=== PATIENT | female | born 1950 | race Caucasian/White ===

== ENCOUNTER 2020-01-26 17:25 | Emergency (ER) | payer MEDICARE, OTHER ==
[~2020-01-26] VITALS: Ht 152.4 cm; Wt 88.9 kg
[2020-01-26] MEDS ORDERED: SODIUM CHLORIDE 0.9% 1000ML 1,000 ML IV STA (18:17)
[2020-01-26] MEDS ORDERED: CEFTRIAXONE SOD 1 GM/NS 50 ML 50 ML IV ONE (18:30)
--- NOTE | 2020-01-26 18:57 | Diagnostic Imaging Report ---
EXAMINATION: CHEST SINGLE (PORTABLE) COMPARISON: None INDICATION: ^Y ^SOB shortness of breath, weakness DISCUSSION: Frontal view of the chest obtained at 1839 hours. HEART AND MEDIASTINUM: The heart is normal in size LINES: Dual-lead pacemaker wires terminate in the right atrium and right ventricle LUNGS/PLEURA: The lungs are well inflated and clear. No pneumonia or pulmonary edema. Mild eventration of the right diaphragm. No pleural effusion or pneumothorax. BONES AND SOFT TISSUES: No focal osseous lesion. The soft tissues are normal. IMPRESSION: No acute cardiopulmonary disease. Signed by: Dr. Raul Zapata MD on 01/26/2020 6:54 PM
[2020-01-26 19:12] LABS: BASOPHILS # (AUTO) 0.1 (0.0-0.1); BASOPHILS % 1.1 % (0.0-1.0); EOSINOPHILS # (AUTO) 0.3 (0.0-0.4); EOSINOPHILS % 3.9 % (0.0-6.0); HEMATOCRIT 43.6 % (34.2-44.1); HEMOGLOBIN 14.3 g/dL (12.0-16.0); LYMPHOCYTES # (AUTO) 2.4 (1.0-3.2); LYMPHOCYTES % 33.4 % (18.0-39.1); MEAN CORPUSCULAR HEMOGLOBIN 29.1 pg (28-32); MEAN CORPUSCULAR HGB CONC 32.8 g/dL (31-35); MEAN CORPUSCULAR VOLUME 88.6 fL (81-99); MONOCYTES # (AUTO) 0.8 (0.2-0.8); MONOCYTES % 11.4 % (4.4-11.3); NEUTROPHILS # (AUTO) 3.6 (2.1-6.9); NEUTROPHILS % 49.2 % (38.7-80.0); PLATELET COUNT 221 x10e3/uL (140-360); RED BLOOD COUNT 4.92 x10e6/uL (3.6-5.1); RED CELL DISTRIBUTION WIDTH 12.1 % (11.7-14.4)
[2020-01-26 19:29] LABS: PARTIAL THROMBOPLASTIN TIME 29.7 seconds (23.8-35.5)
[2020-01-26 19:30] LABS: BILIRUBIN,URINE NEGATIVE (NEGATIVE); CLARITY,URINE CLEAR (CLEAR); COLOR,URINE YELLOW (YELLOW); KETONES,URINE NEGATIVE (NEGATIVE); LEUKOCYTE ESTERASE ,URINE NEGATIVE (NEGATIVE); NITRITE,URINE NEGATIVE (NEGATIVE); PROTEIN,URINE DIPSTICK NEGATIVE (NEGATIVE); URINE UROBILINOGEN 0.2 mg/dL (0.2 - 1)
[2020-01-26 19:35] LABS: INR 0.88; PROTHROMBIN TIME 12.4 seconds (11.9-14.5)
--- NOTE | 2020-01-26 19:38 | Emergency Department Note ---
History of Present Illnes History of Present Illness Chief Complaint: COVID PUI History of Present Illness This is a 69 year old female WITH COMPLAINTS OF SHORTNESS OF BREATH AND DIZZINESS X 2 DAYS; REPORTS FEELING VERY WEAK AND TIRED. PATIENT STATES TODAY SHE WAS OUT FEEDING THE ANIMALS AND SLIPPED AND FELL AND HIT BACK OF HER HEAD, DENIES LOC. DENIES FEVER, DENIES COUGH, . Historian: Patient Arrival Mode: Car Onset (how long ago): day(s) (2) Location: ALL OVER Quality: GENERALIZED WEAKNESS AND FATIGUE FOR 2 DAYS Radiation: Reports non-radiation Severity: moderate Onset quality: gradual Duration (how long): hour(s) (2) Timing of current episode: constant Progression: unchanged Chronicity: new Context: Denies recent illness, Denies recent surgery Relieving factors: none Exacerbating factors: none Associated symptoms: Reports denies other symptoms Treatments prior to arrival: none Past Medical/Family History Physician Review I have reviewed the patient's past medical and family history. Any updates have been documented here. Past Medical History Recent Fever: No Clinical Suspicion of Infectio: No New/Unexplained Change in Ment: No Past Medical History: Hypertension, Asthma, Anxiety, Depression, GERD Past Surgical History: Cholecysctectomy, Appendectomy, Pacer/AICD, Other Surgery: PACEMAKER LOOP RECORDER KATIE Social History Smoking Cessation: Current some day smoker Counseling Performed: Yes Alcohol Use: None Any Illegal Drug Use: No TB Exposure/Symptoms: No Physically hurt or threatened: No Family History Family history of heart diseas: No Other Last Tetanus: UNKNOWN Any Pre-Existing Lines (PICC,: No Is patient up to date on immun: Yes Last Flu: utd Last Pneumovax: utd Review of Systems Review of Systems Constitutional: Reports as per HPI EENTM: Reports no symptoms Cardiovascular: Reports no symptoms Respiratory: Reports as per HPI Gastrointestinal: Reports no symptoms Genitourinary: Reports no symptoms Musculoskeletal: Reports as per HPI Integumentary: Reports no symptoms Neurological: Reports no symptoms Psychological: Reports no symptoms Endocrine: Reports no symptoms Hematological/Lymphatic: Reports no symptoms Physical Exam Related Data Allergies: Coded Allergies: atropine (Verified Allergy, Severe, DIZZINESS AND WEAKNESS, 01/26/20) diphenoxylate (Verified Allergy, Severe, DIZZINESS AND WEAKNESS, 01/26/20) Triage Vital Signs Vital Signs Date Time Temp Pulse Resp B/P (MAP) Pulse Ox O2 Delivery O2 Flow Rate FiO2 01/26/20 17:52 97.5 71 18 168/84 95 Vital signs reviewed: Yes Physical Exam CONSTITUTIONAL Constitutional: Present well-developed, Present well-nourished HENT HENT: Present normocephalic, Present oropharynx clear/moist, Present nose normal, Present other (SMALL CONTUSION RO LEFT POSTERIOR OCCIPITAL AREA) HENT L/R: Present left ext ear normal, Present right ext ear normal EYES Eyes: Reports PERRL, Reports conjunctivae normal NECK Neck: Present ROM normal PULMONARY Pulmonary: Present effort normal, Present breath sounds normal CARDIOVASCULAR Cardiovascular: Present regular rhythm, Present heart sounds normal, Present capillary refill normal, Present normal rate GASTROINTESTINAL Abdominal: Present soft, Present nontender, Present bowel sounds normal GENITOURINARY Genitourinary: Present exam deferred SKIN Skin: Present warm, Present dry MUSCULOSKELETAL Musculoskeletal: Present ROM normal NEUROLOGICAL Neurological: Present alert, Present oriented x 3, Present no gross motor or sensory deficits PSYCHOLOGICAL Psychological: Present mood/affect normal, Present judgement normal Results Laboratory Result Diagram: 01/26/20 1820 Laboratory Laboratory Tests Test 01/26/20 18:20 White Blood Count 7.25 x10e3/uL (4.8-10.8) Red Blood Count 4.92 x10e6/uL (3.6-5.1) Hemoglobin 14.3 g/dL (12.0-16.0) Hematocrit 43.6 % (34.2-44.1) Mean Corpuscular Volume 88.6 fL (81-99) Mean Corpuscular Hemoglobin 29.1 pg (28-32) Mean Corpuscular Hemoglobin Concent 32.8 g/dL (31-35) Red Cell Distribution Width 12.1 % (11.7-14.4) Platelet Count 221 x10e3/uL (140-360) Neutrophils (%) (Auto) 49.2 % (38.7-80.0) Lymphocytes (%) (Auto) 33.4 % (18.0-39.1) Monocytes (%) (Auto) 11.4 % (4.4-11.3) Eosinophils (%) (Auto) 3.9 % (0.0-6.0) Basophils (%) (Auto) 1.1 % (0.0-1.0) Neutrophils # (Auto) 3.6 (2.1-6.9) Lymphocytes # (Auto) 2.4 (1.0-3.2) Monocytes # (Auto) 0.8 (0.2-0.8) Eosinophils # (Auto) 0.3 (0.0-0.4) Basophils # (Auto) 0.1 (0.0-0.1) Absolute Immature Granulocyte (auto 0.07 x10e3/uL (0-0.1) Urine Color Yellow (YELLOW) Urine Clarity Clear (CLEAR) Urine pH 7.5 (5 - 7) Urine Specific [place]app[place] 1.020 (1.010-1.025) Urine Protein Negative (NEGATIVE) Urine Glucose (UA) Negative (NEGATIVE) Urine Ketones Negative (NEGATIVE) Urine Blood Negative (NEGATIVE) Urine Nitrite Negative (NEGATIVE) Urine Bilirubin Negative (NEGATIVE) Urine Urobilinogen 0.2 mg/dL (0.2 - 1) Urine Leukocyte Esterase Negative (NEGATIVE) Lab results reviewed: Yes Imaging Imaging results reviewed: Yes Impressions Procedure: [id number] CT/CT BRAIN WO Exam Date: 01/26/20 Exam Time: 2039 REPORT STATUS: Signed CT BRAIN WO HISTORY: Trauma COMPARISON: None. Technique: Noncontrast axial scans were obtained from skull base to the vertex. Coronal and sagittal reconstructions obtained from the axial data. One or more of the following dose reduction techniques were used: Automated exposure control, adjustment of the mA and/or kV according to patient size, and/or utilization of iterative reconstruction technique. DISCUSSION: Scalp/Skull: Unremarkable. Brain sulci: Mildly prominent. Ventricles: Compensatory dilatation. Extra-axial spaces: No masses or fluid collections. Carotid siphon calcifications are present. Parenchyma: Mild bilateral deep white matter hypodensity is likely chronic microvascular ischemic change. 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 Otherwise, no masses, hemorrhage, or large vascular territory acute infarct. Dural sinuses: No abnormal densities. Sellar/Suprasellar region: Intact. Skull base: Intact. Incidental findings: Bilateral ocular lens replacement. IMPRESSION: 1. No acute intracranial abnormalities. 2. Mild supratentorial chronic microvascular ischemic change. Mild generalized cerebral volume loss. Signed by: Dr. Gregory Chavira M.D. on 01/26/2020 9:22 PM Procedure: [id number] DX/CHEST SINGLE (PORTABLE) Exam Date: Exam Time: REPORT STATUS: Signed EXAMINATION: CHEST SINGLE (PORTABLE) COMPARISON: None INDICATION: ^Y ^SOB shortness of breath, weakness DISCUSSION: Frontal view of the chest obtained at 1839 hours. HEART AND MEDIASTINUM: The heart is normal in size LINES: Dual-lead pacemaker wires terminate in the right atrium and right ventricle LUNGS/PLEURA: The lungs are well inflated and clear. No pneumonia or pulmonary edema. Mild eventration of the right diaphragm. No pleural effusion or pneumothorax. BONES AND SOFT TISSUES: No focal osseous lesion. The soft tissues are normal. IMPRESSION: No acute cardiopulmonary disease. Signed by: Dr. 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 Assessment & Plan Final Impression: (1) UTI (urinary tract infection) (2) Generalized weakness Depart Disposition: HOME, SELF-CARE Last Vital Signs Date Time Temp Pulse Resp B/P (MAP) Pulse Ox O2 Delivery O2 Flow Rate FiO2 01/26/20 17:52 97.5 71 18 168/84 95 Medications in the ED Sodium Chloride 1,000 ml @ 0 mls/hr Q0M STAT IV Last administered on 01/26/20at 18:47; Admin Dose 999 MLS/HR; Start 01/26/20 at 18:17; Stop 01/26/20 at 18:22; Status DC Ceftriaxone Sodium 50 ml @ 100 mls/hr ONCE ONCE IV Last administered on 01/26/20at 18:47; Admin Dose 100 MLS/HR; Start 01/26/20 at 18:30; Stop 01/26/20 at 18:59; Status DC CM CHAVARRIA MD Jan 26, 2020 19:38
[2020-01-26 19:49] LABS: ALANINE AMINOTRANSFERASE 17 IU/L (0-55); ALBUMIN 4.1 g/dL (3.5-5.0); ALBUMIN/GLOBULIN RATIO 1.2 (0.8-2.0); ALKALINE PHOSPHATASE 62 IU/L (40-150); ANION GAP 13.3 mmol/L (8-16); BLOOD UREA NITROGEN 13 mg/dL (7-26); BUN/CREATININE RATIO 15 (6-25); CALCIUM 9.8 mg/dL (8.4-10.2); CARBON DIOXIDE 29 mmol/L (22-29); CHLORIDE 104 mmol/L (98-107); CREATINE KINASE 52 IU/L (29-168); CREATININE, SERUM 0.85 mg/dL (0.57-1.11); EST GLOMERULAR FILTRATION RATE > 60 ML/MIN (60-); GLUCOSE 105 mg/dL (74-118); POTASSIUM 4.3 mmol/L (3.5-5.1); SODIUM 142 mmol/L (136-145)
[2020-01-26 20:00] LABS: B-TYPE NATRIURETIC PEPTIDE2 224.5 pg/mL (0-100)
[2020-01-26 20:12] LABS: BACTERIA,URINE MANY /HPF; EPITHELIAL CELLS,URINE MODERATE /LPF; RBC,URINE 0-5 /HPF (0-5)
--- NOTE | 2020-01-26 21:26 | Diagnostic Imaging Report ---
CT BRAIN WO HISTORY: Trauma COMPARISON: None. Technique: Noncontrast axial scans were obtained from skull base to the vertex. Coronal and sagittal reconstructions obtained from the axial data. One or more of the following dose reduction techniques were used: Automated exposure control, adjustment of the mA and/or kV according to patient size, and/or utilization of iterative reconstruction technique. DISCUSSION: Scalp/Skull: Unremarkable. Brain sulci: Mildly prominent. Ventricles: Compensatory dilatation. Extra-axial spaces: No masses or fluid collections. Carotid siphon calcifications are present. Parenchyma: Mild bilateral deep white matter hypodensity is likely chronic microvascular ischemic change. 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 Otherwise, no masses, hemorrhage, or large vascular territory acute infarct. Dural sinuses: No abnormal densities. Sellar/Suprasellar region: Intact. Skull base: Intact. Incidental findings: Bilateral ocular lens replacement. IMPRESSION: 1. No acute intracranial abnormalities. 2. Mild supratentorial chronic microvascular ischemic change. Mild generalized cerebral volume loss. Signed by: Dr. Gregory Chavira M.D. on 01/26/2020 9:22 PM
[2020-01-26 22:44] VITALS: BP 158/80
== END 2020-01-26 23:13 | disposition home or self-care (01) ==
LOC: ER 17:25
DX: R06.02 Shortness of breath (principal); R53.1 Weakness; R42 Dizziness and giddiness; S00.83XA Contusion of other part of head, initial encounter; N39.0 Urinary tract infection, site not specified; W01.0XXA Fall on same level from slipping, tripping and stumbling without subsequent striking against object, initial encounter; Y93.K9 Activity, other involving animal care; Y92.008 Other place in unspecified non-institutional (private) residence as the place of occurrence of the external cause; I10 Essential (primary) hypertension; F41.9 Anxiety disorder, unspecified; K21.9 Gastro-esophageal reflux disease without esophagitis; Z95.810 Presence of automatic (implantable) cardiac defibrillator; F17.210 Nicotine dependence, cigarettes, uncomplicated
CPT/HCPCS: 36415; 70450; 71045; 80053; 81001; 82550; 82553; 83605; 83880; 84484; 85025; 85610; 85730; 87040; 87086; 87635; 93005; 99284; J0696; J7030

== ENCOUNTER → 2020-06-01 | Outpatient (CLI) | payer MEDICARE ==
--- NOTE | 2020-06-01 16:02 | Diagnostic Imaging Report ---
EXAM: BONE MINERAL DENSITY HISTORY: Osteoporosis COMPARISON: None DISCUSSION: Evaluation of the left hip and lumbar spine was performed utilizing DEXA Hologic bone densitometer. The study is technically adequate. The patient's fracture risk is compared to an age-matched control. The patient denies prior surgery/fracture of the spine, hips or forearm. Left hip femoral neck bone mineral density: 0.615 g/cm2, T-score is -2.1, Z-score is -0.2. Left hip total bone mineral density: 0.739 g/cm2, T-score is -1.7, Z-score is 0. Lumbar spine total bone mineral density: 1 gm/cm2, T-score is -0.4, Z-score is 1.8. Impression: Bone mineralization by WHO Classification is osteopenia, the fracture risk is increased. World Health Organization Fracture Risk Assessment Tool estimates 10 year fracture risk of 11% for major osteoporotic fracture and 2.3% for hip fracture. Fracture probability calculated for an untreated patient and probability may be lower if patient has received treatment. Signed by: Dr. Erasmo Saxena M.D. on 06/01/2020 3:59 PM
== END ==
LOC: MAMMO 14:12
PROVIDERS: ATTEND Family Medicine
DX: Z12.31 Encounter for screening mammogram for malignant neoplasm of breast (principal); Z13.820 Encounter for screening for osteoporosis
CPT/HCPCS: 77067; 77080

== ENCOUNTER → 2020-06-05 | Outpatient (CLI) | payer MEDICARE | END | disposition home or self-care (01) | LOC: CT 17:28 | PROVIDERS: ATTEND Family Medicine | DX: R51.9 Headache, unspecified (principal); R42 Dizziness and giddiness; R94.31 Abnormal electrocardiogram [ECG] [EKG] | CPT/HCPCS: 70450 ==

== ENCOUNTER 2020-10-09 17:21 | Emergency (ER) | payer MEDICARE ==
[~2020-10-09] VITALS: Ht 152.4 cm; Wt 88.9 kg
[2020-10-09] MEDS ORDERED: ONDANSETRON HCL INJ 2MG/ML 2ML 2 MG/ML VIAL IV STA (17:42)
[2020-10-09] MEDS ORDERED: ASPIRIN 81 MG CHEW TAB PO ONE (17:45)
[2020-10-09] MEDS ORDERED: MORPHINE SULFATE INJ 4 MG/ML INJ 1ML IV PRN (17:45)
[2020-10-09 18:23] LABS: BASOPHILS # (AUTO) 0.1 (0.0-0.1); BASOPHILS % 1.4 % (0.0-1.0); EOSINOPHILS # (AUTO) 0.3 (0.0-0.4); EOSINOPHILS % 4.1 % (0.0-6.0); HEMATOCRIT 38.3 % (34.2-44.1); HEMOGLOBIN 12.6 g/dL (12.0-16.0); LYMPHOCYTES % 26.3 % (18.0-39.1); MEAN CORPUSCULAR HEMOGLOBIN 29.4 pg (28-32); MEAN CORPUSCULAR HGB CONC 32.9 g/dL (31-35); MEAN CORPUSCULAR VOLUME 89.5 fL (81-99); MONOCYTES # (AUTO) 0.8 (0.2-0.8); MONOCYTES % 10.8 % (4.4-11.3); NEUTROPHILS # (AUTO) 4.4 (2.1-6.9); NEUTROPHILS % 56.5 % (38.7-80.0); PLATELET COUNT 244 x10e3/uL (140-360); RED BLOOD COUNT 4.28 x10e6/uL (3.6-5.1); RED CELL DISTRIBUTION WIDTH 12.6 % (11.7-14.4)
[2020-10-09 18:38] LABS: ALANINE AMINOTRANSFERASE 13 IU/L (0-55); ALBUMIN 4.2 g/dL (3.5-5.0); ALBUMIN/GLOBULIN RATIO 1.2 (0.8-2.0); ALKALINE PHOSPHATASE 38 IU/L (40-150); ANION GAP 15.8 mmol/L (8-16); BLOOD UREA NITROGEN 24 mg/dL (7-26); BUN/CREATININE RATIO 17 (6-25); CALCIUM 9.2 mg/dL (8.4-10.2); CARBON DIOXIDE 26 mmol/L (22-29); CHLORIDE 104 mmol/L (98-107); CREATINE KINASE 46 IU/L (29-168); CREATININE, SERUM 1.41 mg/dL (0.57-1.11); EST GLOMERULAR FILTRATION RATE 37 ML/MIN (60-); GLUCOSE 80 mg/dL (74-118); POTASSIUM 3.8 mmol/L (3.5-5.1); SODIUM 142 mmol/L (136-145)
[2020-10-09] MEDS ORDERED: SODIUM CHLORIDE 0.9% 1000ML 1,000 ML IV STA (19:00)
[2020-10-09] MEDS ORDERED: IOPAMIDOL 370 MG/ML 200 ML INFUS..BTL INJ ONE (19:59)
[2020-10-09] MEDS ORDERED: SODIUM CHLORIDE 0.9% 50ML 50 ML ONE (19:59)
[2020-10-09 20:07] LABS: CLARITY,URINE CLEAR (CLEAR); COLOR,URINE YELLOW (YELLOW); KETONES,URINE NEGATIVE (NEGATIVE); LEUKOCYTE ESTERASE ,URINE NEGATIVE (NEGATIVE); NITRITE,URINE NEGATIVE (NEGATIVE); PROTEIN,URINE DIPSTICK NEGATIVE (NEGATIVE)
[2020-10-09 20:08] LABS: URINE UROBILINOGEN 0.2 mg/dL (0.2 - 1)
[2020-10-09 20:19] LABS: BACTERIA,URINE FEW /HPF; EPITHELIAL CELLS,URINE FEW /LPF; RENAL EPITHELIAL CELLS,URINE RARE
[2020-10-09] MEDS ORDERED: VALIUM2 MG PO (20:58)
[2020-10-09] MEDS ORDERED: ULTRAM50 MG PO (20:58)
[2020-10-09 21:11] VITALS: BP 131/60
[2020-10-09] MEDS ORDERED: HYDROCODONE/APAP 7.5MG-325MG 1 EA TAB PO ONE (21:15)
== END 2020-10-09 21:59 | disposition home or self-care (01) ==
LOC: ER 17:50
DX: M25.551 Pain in right hip (principal); R10.31 Right lower quadrant pain; M16.11 Unilateral primary osteoarthritis, right hip; M47.898 Other spondylosis, sacral and sacrococcygeal region; I10 Essential (primary) hypertension; J45.909 Unspecified asthma, uncomplicated; F41.9 Anxiety disorder, unspecified; K21.9 Gastro-esophageal reflux disease without esophagitis; Z95.810 Presence of automatic (implantable) cardiac defibrillator
CPT/HCPCS: 36415; 73701; 74177; 80053; 81001; 82550; 82553; 84484; 85025; 99284; J2270; J2405; J7030; Q9967

== ENCOUNTER 2021-06-05 22:22 | Inpatient (IN) | payer MEDICARE ==
[~2021-06-05] VITALS: Ht 154.9 cm; Wt 87.5 kg
[~2021-06-05 22:22] MED LIST: ULTRAM50 MG PO; VALIUM2 MG PO
[2021-06-05] MEDS ORDERED: SODIUM CHLORIDE 0.9% 1000ML 1,000 ML IV STA (22:27)
[2021-06-05] MEDS ORDERED: PIPERACILLIN/TAZOBACTAM 3.375 GM VIAL ONE (22:48)
[2021-06-05] MEDS ORDERED: SODIUM CHLORIDE 0.9% 50ML 50 ML ONE (22:48)
[2021-06-05 23:01] LABS: BASOPHILS % 0.3 % (0.0-1.0); EOSINOPHILS % 0.5 % (0.0-6.0); HEMATOCRIT 40.2 % (34.2-44.1); HEMOGLOBIN 12.6 g/dL (12.0-16.0); LYMPHOCYTES % 19.9 % (18.0-39.1); MEAN CORPUSCULAR HEMOGLOBIN 28.9 pg (28-32); MEAN CORPUSCULAR HGB CONC 31.3 g/dL (31-35); MEAN CORPUSCULAR VOLUME 92.2 fL (81-99); NEUTROPHILS % 69.1 % (38.7-80.0); PLATELET COUNT 204 x10e3/uL (140-360); RED BLOOD COUNT 4.36 x10e6/uL (3.6-5.1); RED CELL DISTRIBUTION WIDTH 12.6 % (11.7-14.4)
[2021-06-05 23:02] LABS: LYMPHOCYTES # (AUTO) 1.2 (1.0-3.2); MONOCYTES # (AUTO) 0.5 (0.2-0.8)
[2021-06-05 23:15] LABS: ALANINE AMINOTRANSFERASE 19 IU/L (0-55); ALBUMIN 3.4 g/dL (3.5-5.0); ALBUMIN/GLOBULIN RATIO 0.9 (0.8-2.0); ALKALINE PHOSPHATASE 54 IU/L (40-150); ANION GAP 19.6 mmol/L (8-16); BLOOD UREA NITROGEN 33 mg/dL (7-26); BUN/CREATININE RATIO 16 (6-25); CALCIUM 7.8 mg/dL (8.4-10.2); CARBON DIOXIDE 23 mmol/L (22-29); CHLORIDE 101 mmol/L (98-107); CREATINE KINASE 65 IU/L (29-168); CREATININE, SERUM 2.12 mg/dL (0.57-1.11); EST GLOMERULAR FILTRATION RATE 23 ML/MIN (60-); GLUCOSE 139 mg/dL (74-118); POTASSIUM 3.6 mmol/L (3.5-5.1); SODIUM 140 mmol/L (136-145)
[2021-06-05 23:28] LABS: CREATINE KINASE MB < 1.00 ng/mL (0-4.3)
[2021-06-05] MEDS ORDERED: DOXYCYCLINE HY100 MG (23:29)
[2021-06-05] MEDS ORDERED: CETIRIZINE HCL10 MG PO (23:29)
[2021-06-05] MEDS ORDERED: FUROSEMIDE40 MG (23:29)
[2021-06-05] MEDS ORDERED: FENOFIBRATE160 MG PO (23:29)
[2021-06-05] MEDS ORDERED: SOLIFENACIN SUCC5 MG PO (23:29)
[2021-06-05] MEDS ORDERED: FLUTICASONE PRO16 GM (23:29)
[2021-06-05] MEDS ORDERED: MECLIZINE HCL25 MG PO (23:29)
[2021-06-05] MEDS ORDERED: ALPRAZOLAM2 MG PO (23:29)
[2021-06-05] MEDS ORDERED: LOSARTAN POTAS100 MG PO (23:29)
[2021-06-05] MEDS ORDERED: ALENDRONATE SOD10 MG (23:29)
[2021-06-05] MEDS ORDERED: FLUOXETINE HCL40 MG PO (23:29)
[2021-06-05] MEDS ORDERED: ALBUTEROL (23:29)
[2021-06-05] MEDS ORDERED: ROSUVASTATIN CAL5 MG PO (23:29)
[2021-06-05] MEDS ORDERED: BUSPIRONE HCL10 MG PO (23:29)
[2021-06-05] MEDS ORDERED: LOPRESSOR25 MG PO (23:29)
[2021-06-05] MEDS ORDERED: PROMETHAZINE HC25 M1 PO (23:29)
[2021-06-05] MEDS ORDERED: ASPIRIN81 MG PO (23:29)
[2021-06-05 23:31] LABS: B-TYPE NATRIURETIC PEPTIDE2 23.1 pg/mL (0-100)
[2021-06-05 23:44] LABS: CLARITY,URINE CLOUDY (CLEAR); COLOR,URINE YELLOW (YELLOW)
[2021-06-05 23:45] LABS: KETONES,URINE NEGATIVE (NEGATIVE); LEUKOCYTE ESTERASE ,URINE NEGATIVE (NEGATIVE); NITRITE,URINE NEGATIVE (NEGATIVE); PROTEIN,URINE DIPSTICK 2+ (NEGATIVE); URINE UROBILINOGEN 0.2 mg/dL (0.2 - 1)
[2021-06-05 23:46] LABS: BACTERIA,URINE MANY /HPF; EPITHELIAL CELLS,URINE MANY /LPF
[2021-06-05] MEDS ORDERED: DEXAMETHASONE SOD PHOS 10 MG/1 ML VIAL IV STA (23:49)
[2021-06-06] MEDS ORDERED: Morphine 4mg Syringe 4 MG/ML INJ IV PRN
[2021-06-06 02:40] VITALS: BP 151/72
[2021-06-06 04:00] VITALS: BP 143/62
[2021-06-06] MEDS: SODIUM CHLORIDE 0.9% 1000ML 1,000 ML IV SCH ×2 (04:04→08:15)
[2021-06-06] MEDS ORDERED: PIPERACILLIN/TAZOBACTAM 3.375 GM in SODIUM CHLORIDE 0.9% 50ML 50 ML IV SCH (06:00)
[2021-06-06] MEDS ORDERED: LACTATED RINGER'S 1,000 ML INJ ONE (08:45)
[2021-06-06] MEDS ORDERED: ONDANSETRON HCL INJ 2MG/ML 2ML 2 MG/ML VIAL IV PRN ×2 (08:45)
[2021-06-06 09:17] VITALS: BP 118/57
[2021-06-06 09:18] VITALS: BP 118/57
[2021-06-06] MEDS: ACETAMINOPHEN 325 MG/10 ML UDC PO PRN (09:21)
[2021-06-06 09:34] LABS: BASOPHILS % 0.4 % (0.0-1.0); HEMOGLOBIN 11.8 g/dL (12.0-16.0); LYMPHOCYTES # (AUTO) 0.7 (1.0-3.2); LYMPHOCYTES % 26.6 % (18.0-39.1); MEAN CORPUSCULAR HEMOGLOBIN 28.6 pg (28-32); MEAN CORPUSCULAR HGB CONC 31.9 g/dL (31-35); MEAN CORPUSCULAR VOLUME 89.6 fL (81-99); MONOCYTES # (AUTO) 0.1 (0.2-0.8); MONOCYTES % 4.6 % (4.4-11.3); NEUTROPHILS # (AUTO) 1.8 (2.1-6.9); NEUTROPHILS % 66.9 % (38.7-80.0); PLATELET COUNT 200 x10e3/uL (140-360); RED BLOOD COUNT 4.13 x10e6/uL (3.6-5.1); RED CELL DISTRIBUTION WIDTH 12.4 % (11.7-14.4)
[2021-06-06 09:50] LABS: CREATINE KINASE 71 IU/L (29-168)
[2021-06-06 09:52] LABS: ALBUMIN 3.1 g/dL (3.5-5.0); ALBUMIN/GLOBULIN RATIO 0.9 (0.8-2.0); ANION GAP 17.4 mmol/L (8-16); CALCIUM 7.1 mg/dL (8.4-10.2); CREATININE, SERUM 1.59 mg/dL (0.57-1.11); POTASSIUM 3.4 mmol/L (3.5-5.1)
[2021-06-06] MEDS ORDERED: DEXAMETHASONE SOD PHOS 10 MG/1 ML VIAL IV NR (11:00)
[2021-06-06] MEDS ORDERED: REMDESIVIR 200MG 200 MG in SODIUM CHLORIDE 0.9% 100 ML IV ONE (11:15)
[2021-06-06] MEDS: CEFTRIAXONE 1 GM in SODIUM CHLORIDE 0.9% 50ML 50 ML IV SCH (11:57)
[2021-06-06] MEDS ORDERED: POTASSIUM CHLORIDE 20 MEQ TAB CR PO NR (12:01)
[2021-06-06] MEDS ORDERED: TRAMADOL HCL 50 MG TAB PO PRN (12:15)
[2021-06-06] MEDS: BUSPIRONE HCL 10 MG TABLET PO SCH (17:02)
[2021-06-06] MEDS: SOLIFENACIN SUCCINATE 5 MG TAB PO SCH (17:02)
[2021-06-06 20:00] VITALS: BP 110/50
[2021-06-06] MEDS: ALPRAZOLAM 1 MG TAB PO SCH (20:30)
[2021-06-06] MEDS: HEPARIN SOD (PORCINE) 5,000 UNIT/ML VIAL SC SCH (21:02)
[2021-06-06 21:15] VITALS: BP 110/50
[2021-06-07] VITALS (8 sets, daily range): BP systolic 96–130; BP diastolic 40–69
[2021-06-07] MEDS: ACETAMINOPHEN 325 MG/10 ML UDC PO PRN (04:25)
[2021-06-07 07:29] LABS: ANION GAP 17.5 mmol/L (8-16); CALCIUM 7.3 mg/dL (8.4-10.2); CREATININE, SERUM 1.22 mg/dL (0.57-1.11); MAGNESIUM 2.3 MG/DL (1.3-2.1); POTASSIUM 3.5 mmol/L (3.5-5.1)
[2021-06-07] MEDS: LORATADINE 10 MG TAB PO SCH (09:04)
[2021-06-07] MEDS: CRESTOR 10MG PO SCH (09:04)
[2021-06-07] MEDS: ASPIRIN 81 MG CHEW TAB PO SCH (09:04)
[2021-06-07] MEDS: FLUTICASONE PROPIONATE NASAL SPRAY NS SCH (09:04)
[2021-06-07] MEDS: BUSPIRONE HCL 10 MG TABLET PO SCH ×2 (09:04→16:51)
[2021-06-07] MEDS: CEFTRIAXONE 1 GM in SODIUM CHLORIDE 0.9% 50ML 50 ML IV SCH (09:04)
[2021-06-07] MEDS: FLUOXETINE HCL 20 MG CAP PO SCH (09:05)
[2021-06-07] MEDS: SOLIFENACIN SUCCINATE 5 MG TAB PO SCH ×2 (09:05→16:51)
[2021-06-07] MEDS: HEPARIN SOD (PORCINE) 5,000 UNIT/ML VIAL SC SCH ×2 (09:07→20:59)
[2021-06-07 09:26] LABS: BASOPHILS % 0.2 % (0.0-1.0); HEMATOCRIT 35.9 % (34.2-44.1); HEMOGLOBIN 11.4 g/dL (12.0-16.0); LYMPHOCYTES # (AUTO) 1.3 (1.0-3.2); LYMPHOCYTES % 23.6 % (18.0-39.1); MEAN CORPUSCULAR HEMOGLOBIN 28.8 pg (28-32); MEAN CORPUSCULAR HGB CONC 31.8 g/dL (31-35); MEAN CORPUSCULAR VOLUME 90.7 fL (81-99); MONOCYTES # (AUTO) 0.8 (0.2-0.8); MONOCYTES % 14.9 % (4.4-11.3); NEUTROPHILS # (AUTO) 3.2 (2.1-6.9); NEUTROPHILS % 59.6 % (38.7-80.0); PLATELET COUNT 216 x10e3/uL (140-360); RED BLOOD COUNT 3.96 x10e6/uL (3.6-5.1); RED CELL DISTRIBUTION WIDTH 12.6 % (11.7-14.4)
[2021-06-07] MEDS: DEXAMETHASONE SOD PHOS 10 MG/1 ML VIAL IV SCH (12:12)
[2021-06-07] MEDS: REMDESIVIR 100MG 100 MG in SODIUM CHLORIDE 0.9% 100 ML IV SCH (13:21)
[2021-06-07] MEDS: ALPRAZOLAM 1 MG TAB PO SCH (20:58)
[2021-06-08] VITALS (8 sets, daily range): BP systolic 108–142; BP diastolic 55–75
[2021-06-08 06:22] LABS: BASOPHILS % 0.2 % (0.0-1.0); HEMATOCRIT 34.9 % (34.2-44.1); LYMPHOCYTES # (AUTO) 1.6 (1.0-3.2); LYMPHOCYTES % 28.9 % (18.0-39.1); MEAN CORPUSCULAR HEMOGLOBIN 28.7 pg (28-32); MEAN CORPUSCULAR HGB CONC 31.5 g/dL (31-35); MEAN CORPUSCULAR VOLUME 91.1 fL (81-99); MONOCYTES # (AUTO) 0.7 (0.2-0.8); MONOCYTES % 13.6 % (4.4-11.3); NEUTROPHILS # (AUTO) 3.1 (2.1-6.9); NEUTROPHILS % 56.6 % (38.7-80.0); PLATELET COUNT 219 x10e3/uL (140-360); RED BLOOD COUNT 3.83 x10e6/uL (3.6-5.1); RED CELL DISTRIBUTION WIDTH 12.7 % (11.7-14.4)
[2021-06-08 07:11] LABS: ANION GAP 16.3 mmol/L (8-16); CALCIUM 7.1 mg/dL (8.4-10.2); CREATININE, SERUM 1.05 mg/dL (0.57-1.11); POTASSIUM 3.3 mmol/L (3.5-5.1)
[2021-06-08] MEDS: FLUTICASONE PROPIONATE NASAL SPRAY NS SCH (08:51)
[2021-06-08] MEDS: LORATADINE 10 MG TAB PO SCH (08:51)
[2021-06-08] MEDS: FLUOXETINE HCL 20 MG CAP PO SCH (08:51)
[2021-06-08] MEDS: ASPIRIN 81 MG CHEW TAB PO SCH (08:51)
[2021-06-08] MEDS: SOLIFENACIN SUCCINATE 5 MG TAB PO SCH ×2 (08:51→16:18)
[2021-06-08] MEDS: CEFTRIAXONE 1 GM in SODIUM CHLORIDE 0.9% 50ML 50 ML IV SCH (08:51)
[2021-06-08] MEDS: CRESTOR 10MG PO SCH (08:51)
[2021-06-08] MEDS: BUSPIRONE HCL 10 MG TABLET PO SCH ×2 (08:51→16:18)
[2021-06-08] MEDS: HEPARIN SOD (PORCINE) 5,000 UNIT/ML VIAL SC SCH ×2 (08:52→20:48)
[2021-06-08] MEDS ORDERED: POTASSIUM CHLORIDE 20 MEQ TAB CR PO ONE (09:00)
[2021-06-08] MEDS: DEXAMETHASONE SOD PHOS 10 MG/1 ML VIAL IV SCH (10:16)
[2021-06-08] MEDS ORDERED: ONDANSETRON HCL 4 MG ORAL DISINTEGRATING TAB PO PRN (11:15)
[2021-06-08] MEDS: REMDESIVIR 100MG 100 MG in SODIUM CHLORIDE 0.9% 100 ML IV SCH (13:49)
[2021-06-08] MEDS: ALPRAZOLAM 1 MG TAB PO SCH (20:45)
[2021-06-09] VITALS (8 sets, daily range): BP systolic 113–150; BP diastolic 60–73
[2021-06-09] MEDS: ASPIRIN 81 MG CHEW TAB PO SCH (09:08)
[2021-06-09] MEDS: FLUOXETINE HCL 20 MG CAP PO SCH (09:08)
[2021-06-09] MEDS: SOLIFENACIN SUCCINATE 5 MG TAB PO SCH ×2 (09:08→16:59)
[2021-06-09] MEDS: BUSPIRONE HCL 10 MG TABLET PO SCH ×2 (09:08→16:59)
[2021-06-09] MEDS: FLUTICASONE PROPIONATE NASAL SPRAY NS SCH (09:08)
[2021-06-09] MEDS: CRESTOR 10MG PO SCH (09:08)
[2021-06-09] MEDS: LORATADINE 10 MG TAB PO SCH (09:08)
[2021-06-09] MEDS: HEPARIN SOD (PORCINE) 5,000 UNIT/ML VIAL SC SCH ×2 (10:07→21:17)
[2021-06-09] MEDS: DEXAMETHASONE SOD PHOS 10 MG/1 ML VIAL IV SCH (10:33)
[2021-06-09] MEDS: REMDESIVIR 100MG 100 MG in SODIUM CHLORIDE 0.9% 100 ML IV SCH (13:01)
[2021-06-09] MEDS: ALPRAZOLAM 1 MG TAB PO SCH (21:11)
[2021-06-10 00:17] VITALS: BP 133/43
[2021-06-10 04:28] VITALS: BP 131/82
[2021-06-10 05:03] LABS: BASOPHILS % 0.2 % (0.0-1.0); HEMATOCRIT 34.5 % (34.2-44.1); HEMOGLOBIN 11.2 g/dL (12.0-16.0); LYMPHOCYTES # (AUTO) 1.3 (1.0-3.2); MEAN CORPUSCULAR HEMOGLOBIN 28.9 pg (28-32); MEAN CORPUSCULAR HGB CONC 32.5 g/dL (31-35); MEAN CORPUSCULAR VOLUME 88.9 fL (81-99); MONOCYTES # (AUTO) 0.8 (0.2-0.8); MONOCYTES % 12.2 % (4.4-11.3); NEUTROPHILS % 63.6 % (38.7-80.0); PLATELET COUNT 250 x10e3/uL (140-360); RED BLOOD COUNT 3.88 x10e6/uL (3.6-5.1); RED CELL DISTRIBUTION WIDTH 12.5 % (11.7-14.4)
[2021-06-10 05:33] LABS: ALBUMIN 2.6 g/dL (3.5-5.0); ANION GAP 13.1 mmol/L (8-16); CALCIUM 7.5 mg/dL (8.4-10.2); CREATININE, SERUM 0.87 mg/dL (0.57-1.11); POTASSIUM 4.1 mmol/L (3.5-5.1)
[2021-06-10 08:15] VITALS: BP 148/87
[2021-06-10] MEDS: FLUTICASONE PROPIONATE NASAL SPRAY NS SCH (08:16)
[2021-06-10] MEDS: ASPIRIN 81 MG CHEW TAB PO SCH (08:16)
[2021-06-10] MEDS: BUSPIRONE HCL 10 MG TABLET PO SCH (08:16)
[2021-06-10] MEDS: SOLIFENACIN SUCCINATE 5 MG TAB PO SCH (08:17)
[2021-06-10] MEDS: FLUOXETINE HCL 20 MG CAP PO SCH (08:17)
[2021-06-10] MEDS: LORATADINE 10 MG TAB PO SCH (08:17)
[2021-06-10] MEDS: CRESTOR 10MG PO SCH (08:17)
[2021-06-10 09:10] VITALS: BP 148/47
[2021-06-10] MEDS: DEXAMETHASONE SOD PHOS 10 MG/1 ML VIAL IV SCH (11:32)
[2021-06-10 11:34] VITALS: BP 131/71
[2021-06-10] MEDS: HEPARIN SOD (PORCINE) 5,000 UNIT/ML VIAL SC SCH (11:36)
[2021-06-10] MEDS ORDERED: SODIUM CHLORIDE 0.9% 200 ML ONE (12:23)
[2021-06-10] MEDS ORDERED: REMDESIVIR 100MG 100 MG IV ONE (12:25)
[2021-06-10] MEDS: REMDESIVIR 100MG 100 MG in SODIUM CHLORIDE 0.9% 100 ML IV SCH (13:04)
== END 2021-06-10 14:45 | disposition home health service (06) | DRG 177 ==
LOC: ER 22:27 → ERHOLD 06-06 01:39 → MED/SURG3 06-06 02:25
PROVIDERS: ADMIT Internal Medicine; ATTEND Internal Medicine
PROC: 3E0333Z Introduction of Anti-inflammatory into Peripheral Vein, Percutaneous Approach (ICD-10-PCS; principal; 2021-06-05)
PROC: XW033E5 Introduction of Remdesivir Anti-infective into Peripheral Vein, Percutaneous Approach, New Technology Group 5 (ICD-10-PCS; 2021-06-06)
DX: U07.1 COVID-19 (principal); J12.82 Pneumonia due to coronavirus disease 2019; J15.9 Unspecified bacterial pneumonia; N17.9 Acute kidney failure, unspecified; I95.9 Hypotension, unspecified; I10 Essential (primary) hypertension; J45.909 Unspecified asthma, uncomplicated; K21.9 Gastro-esophageal reflux disease without esophagitis; E66.01 Morbid (severe) obesity due to excess calories; Z95.810 Presence of automatic (implantable) cardiac defibrillator; Z88.8 Allergy status to other drugs, medicaments and biological substances; Z90.49 Acquired absence of other specified parts of digestive tract; R19.7 Diarrhea, unspecified; E87.6 Hypokalemia; E78.00 Pure hypercholesterolemia, unspecified; F39 Unspecified mood [affective] disorder; Z68.36 Body mass index [BMI] 36.0-36.9, adult
CPT/HCPCS: 36415; 51700; 70450; 71045; 80048; 80053; 81001; 82550; 82553; 82948; 83605; 83735; 83880; 84484; 85025; 85730; 87040; 93005; 94660; 94799; 96360; 97139; 99285; J0456; J0696; J1100; J1644; J2543; J7030; J7050; J7121; U0002

== ENCOUNTER 2024-04-13 01:26 | Emergency (ER) | payer MEDICARE ==
[~2024-04-13] VITALS: Ht 152.4 cm; Wt 82.6 kg
[~2024-04-13 01:26] MED LIST changes: +ALBUTEROL; +ALENDRONATE SOD10 MG; +ALPRAZOLAM2 MG PO; +ASPIRIN81 MG PO; +BUSPIRONE HCL10 MG PO; +CETIRIZINE HCL10 MG PO; +DOXYCYCLINE HY100 MG; +FENOFIBRATE160 MG PO; +FLUOXETINE HCL40 MG PO; +FLUTICASONE PRO16 GM; +FUROSEMIDE40 MG; +LOPRESSOR25 MG PO; +LOSARTAN POTAS100 MG PO; +MECLIZINE HCL25 MG PO; +PROMETHAZINE HC25 M1 PO; +ROSUVASTATIN CAL5 MG PO; +SOLIFENACIN SUCC5 MG PO
[2024-04-13 01:36] VITALS: PULSE 67; RESP 20; TEMP 97.3
[2024-04-13] MEDS: SODIUM CHLORIDE 0.9% 500ML 500 ML IV ONE (03:30)
[2024-04-13 04:26] VITALS: BP 124/56; PULSE 66; RESP 18; TEMP 97.2; O2SAT 97
== END 2024-04-13 04:26 | disposition home or self-care (01) ==
LOC: FSED 01:31
DX: R51.9 Headache, unspecified (principal); J06.9 Acute upper respiratory infection, unspecified; I10 Essential (primary) hypertension; J45.909 Unspecified asthma, uncomplicated; K21.9 Gastro-esophageal reflux disease without esophagitis; F41.9 Anxiety disorder, unspecified; F32.A Depression, unspecified; Z11.52 Encounter for screening for COVID-19; Z95.0 Presence of cardiac pacemaker
CPT/HCPCS: 0223U; 70450; 71046; 80053; 81003; 83518; 85025; 87400; 99284; J7040

== ENCOUNTER 2024-10-17 15:57 | Emergency (ER) | payer MEDICARE ==
[~2024-10-17] VITALS: Ht 152.4 cm; Wt 80.7 kg
[2024-10-17] MEDS ORDERED: CLOPIDOGREL75 MG PO (16:30)
[2024-10-17] MEDS ORDERED: CEPHALEXIN500 MG PO (16:30)
[2024-10-17] MEDS ORDERED: PERCOCET 5-3251 EACH PO (16:30)
[2024-10-17] MEDS ORDERED: PREDNISONE20 MG PO (16:30)
[2024-10-17] MEDS ORDERED: METHOCARBAMOL750 MG PO (16:30)
[2024-10-17] MEDS ORDERED: AMOXICILLIN875 MG PO (16:46)
[2024-10-17 16:56] VITALS: PULSE 70; RESP 16; TEMP 98.2; O2SAT 95
== END 2024-10-17 16:56 | disposition home or self-care (01) ==
LOC: FSED 16:03
DX: H66.91 Otitis media, unspecified, right ear (principal); B34.9 Viral infection, unspecified; J04.0 Acute laryngitis; Z11.52 Encounter for screening for COVID-19
CPT/HCPCS: 0223U; 83518; 87400; 99283